=== PATIENT | female | born 1995 | race African-American/Black ===

== ENCOUNTER 2025-06-08 23:16 | Inpatient (IN) | payer MEDICAID ==
[~2025-06-08] VITALS: Ht 157.5 cm; Wt 65.5 kg
[2025-06-09 04:51] VITALS: BP 107/81; PULSE 82; RESP 16; TEMP 98.1; O2SAT 100
[2025-06-09] MEDS: INFLUENZA VIRUS VACCINE TVS (6MO+) 2025-26/PF 45 MCG/0.5 ML SYRINGE IM. ONE (05:45)
[2025-06-09 08:25] VITALS: BP 98/65; PULSE 86; RESP 16; TEMP 99; O2SAT 99
[2025-06-09] MEDS ORDERED: BACITRACIN 28 GM OINTMENT TP PRN (09:15)
[2025-06-09] MEDS ORDERED: ALBUTEROL SULFATE HFA 90 MCG/PUFF 8 GM INHALER IH PRN (09:15)
[2025-06-09] MEDS ORDERED: LOPERAMIDE HCL 2 MG CAPSULE PO PRN (09:15)
[2025-06-09] MEDS ORDERED: PETROLATUM,WHITE 28 GM JELLY TP PRN (09:15)
[2025-06-09] MEDS ORDERED: MAG HYDROX/ALUMINUM HYD/SIMETH ES 30 ML SUSPENSION UDCUP PO PRN (09:15)
[2025-06-09] MEDS ORDERED: OMEPRAZOLE 20 MG CAPSULE PO PRN (09:15)
[2025-06-09] MEDS ORDERED: MAGNESIUM HYDROXIDE SUSPENSION 30 ML UDCUP PO PRN (09:15)
[2025-06-09] MEDS ORDERED: ONDANSETRON 4 MG TABLET PO PRN (09:15)
[2025-06-09] MEDS ORDERED: BENZOCAINE/MENTHOL [CEPACOL] LOZENGE PO PRN (09:15)
[2025-06-09] MEDS ORDERED: ACETAMINOPHEN 325 MG TABLET PO PRN (09:15)
[2025-06-09 09:48] LABS: PLATELET COUNT (AUTO) 309 K/uL (150-450); RED BLOOD CELL COUNT(AUTO) 4.90 MIL/uL (4.00-5.20); RED CELL DISTRIBUTION WIDTH 14.2 % (11.5-14.5); WHITE BLOOD COUNT (AUTO) 3.9 K/uL (4.5-11.0)
[2025-06-09 10:03] LABS: ASPARTATE AMINOTRANSFERASE 24 U/L (15-37); CALCIUM, TOTAL 9.3 mg/dL (8.8-10.5); CHOL/HDL RATIO 3.0 (3.9-5.7); CREATININE 0.92 mg/dL (0.60-1.30); GLOMERULAR FILTR. RATE CALC > 60 mL/min (>60); GLUCOSE,RANDOM 76 mg/dL (70-110); LDL CHOL (CALC.) 106 mg/dL (0-130); SODIUM SERUM 136 mmol/L (136-145); TOTAL PROTEIN, SERUM 8.4 g/dL (6.4-8.2); UREA NITROGEN, BLOOD 6 mg/dL (7-18)
[2025-06-09 10:13] LABS: ALCOHOL, BLOOD (SERUM) < 3 mg/dL (0-10)
[2025-06-09 12:51] LABS: HCG,QUANTITATIVE < 1 mIU/mL (0-6)
[2025-06-09] MEDS: ESCITALOPRAM OXALATE 10 MG TABLET PO SCH (15:56)
[2025-06-09 20:37] VITALS: BP 107/68; PULSE 82; RESP 17; TEMP 97.7; O2SAT 98
[2025-06-10 08:13] VITALS: BP 113/78; PULSE 78; RESP 18; TEMP 97.9; O2SAT 98
[2025-06-10] MEDS: DOCUSATE SODIUM 100 MG CAPSULE PO PRN (09:41)
[2025-06-10 20:26] VITALS: BP 121/83; PULSE 78; RESP 17; TEMP 98; O2SAT 100
[2025-06-11 08:25] VITALS: BP 103/73; PULSE 79; RESP 16; TEMP 98.2; O2SAT 98
[2025-06-11 20:28] VITALS: BP 120/79; PULSE 99; RESP 17; TEMP 98.2; O2SAT 98
[2025-06-12 08:43] VITALS: BP 104/69; PULSE 78; RESP 16; TEMP 99.4; O2SAT 100
[2025-06-12] MEDS: ZOLPIDEM TARTRATE 10 MG TABLET PO PRN (20:24)
[2025-06-12 20:30] VITALS: BP 101/80; PULSE 75; RESP 17; TEMP 98.2; O2SAT 99
[2025-06-13 08:46] VITALS: BP 97/68; PULSE 83; RESP 16; TEMP 98.9; O2SAT 100
[2025-06-13 20:33] VITALS: BP 111/68; PULSE 68; RESP 17; TEMP 98.5; O2SAT 97
[2025-06-14 10:14] VITALS: BP 103/73; PULSE 86; RESP 17; TEMP 98.2; O2SAT 99
[2025-06-14 11:31] LABS: APPEARANCE,URINE CLEAR (CLEAR); GLUCOSE, URINE (UA) NEGATIVE (NEGATIVE); LEUKOCYTE ESTERASE ,URINE NEGATIVE (NEGATIVE); NITRATE,URINE NEGATIVE (NEGATIVE); OCCULT BLOOD,URINE NEGATIVE (NEGATIVE); PH,URINE DRUG SCREEN 7.0 (5.0-8.0); SPECIFIC GRAVITIY, URINE 1.025 (1.003-1.030)
[2025-06-14 12:39] LABS: ALCOHOL, URINE DRUG SCREEN NEGATIVE (NEGATIVE); AMPHET/METH SCREEN,URINE NEGATIVE (NEGATIVE); BARBITURATE SCREEN, URINE NEGATIVE (NEGATIVE); CANNABINOID SCREEN,URINE NEGATIVE (NEGATIVE); COCAINE SCREEN,URINE NEGATIVE (NEGATIVE); METHADONE SCREEN, URINE NEGATIVE (NEGATIVE)
[2025-06-14 20:22] VITALS: BP 104/76; PULSE 89; RESP 17; TEMP 97.7; O2SAT 100
[2025-06-15 08:23] VITALS: BP 126/74; PULSE 76; RESP 16; TEMP 98; O2SAT 97
[2025-06-15 20:14] VITALS: BP 101/67; PULSE 77; RESP 18; TEMP 97.9; O2SAT 98
[2025-06-16 08:48] VITALS: BP 98/68; PULSE 78; RESP 16; TEMP 98.9; O2SAT 100
[2025-06-16] MEDS: DIVALPROEX SODIUM 500 MG DR TABLET PO SCH (09:35)
[2025-06-16] MEDS: LITHIUM CARBONATE 300 MG CAPSULE PO SCH (09:35)
[2025-06-16 12:24] VITALS: RESP 16; O2SAT 100
[2025-06-16] MEDS: IBUPROFEN 600 MG TABLET PO PRN (12:24)
[2025-06-16 13:24] VITALS: RESP 16; O2SAT 100
[2025-06-16 13:47] VITALS: BP 108/71; RESP 17; O2SAT 100
[2025-06-16] MEDS ORDERED: LURASIDONE HCL 80 MG TABLET PO SCH (17:00)
[2025-06-16] MEDS: AMPHETAMINE/DEXTROAMPHETAMINE 10 MG TABLET PO SCH (17:47)
[2025-06-16] MEDS: ESCITALOPRAM OXALATE 10 MG TABLET PO SCH (17:48)
[2025-06-16 20:17] VITALS: BP 118/88; PULSE 81; RESP 17; TEMP 97.8; O2SAT 98
[2025-06-17 03:09] VITALS: BP 121/75; PULSE 77; RESP 18; TEMP 98; O2SAT 99
[2025-06-17 08:50] VITALS: RESP 17
[2025-06-17 20:00] VITALS: BP 132/77; PULSE 77; RESP 17; TEMP 97.6
[2025-06-18] MEDS ORDERED: AMPHETAMINE/DEXTROAMPHETAMINE 10 MG TABLET PO SCH ×2 (09:00→14:00)
[2025-06-18 09:04] VITALS: BP 131/61; PULSE 77; RESP 18; TEMP 98.1; O2SAT 98
[2025-06-18] MEDS: AMPHETAMINE/DEXTROAMPHETAMINE 10 MG TABLET PO SCH (09:22)
[2025-06-18 20:00] VITALS: BP 123/75; PULSE 73; RESP 17; TEMP 98.2; O2SAT 99
[2025-06-19 08:15] VITALS: BP 124/74; PULSE 74; RESP 18; TEMP 98.1; O2SAT 99
[2025-06-19 20:09] VITALS: BP 115/68; PULSE 83; RESP 17; TEMP 97.5; O2SAT 96
[2025-06-20 08:33] VITALS: BP 95/62; PULSE 86; RESP 16; TEMP 98; O2SAT 100
[2025-06-20 20:44] VITALS: BP 104/7; PULSE 77; RESP 17; TEMP 98.5; O2SAT 100
[2025-06-21 08:37] VITALS: BP 107/72; PULSE 70; RESP 17; TEMP 98.1; O2SAT 100
[2025-06-21 08:48] VITALS: RESP 18
[2025-06-21] MEDS: AMPHETAMINE/DEXTROAMPHETAMINE 10 MG TABLET PO SCH (08:48)
[2025-06-21 09:48] VITALS: RESP 18
[2025-06-21 12:00] VITALS: RESP 18
[2025-06-21 13:00] VITALS: RESP 18
[2025-06-21 20:57] VITALS: BP 113/87; PULSE 87; RESP 17; TEMP 98.5; O2SAT 99
[2025-06-22 08:29] VITALS: BP 118/73; PULSE 78; RESP 18; TEMP 97.9; O2SAT 95
[2025-06-22 09:31] VITALS: RESP 18
[2025-06-22 10:31] VITALS: RESP 18
[2025-06-22] MEDS ORDERED: ESCI-8 PO (15:59)
[2025-06-22] MEDS ORDERED: LORA0.5T20 PO (15:59)
[2025-06-22] MEDS ORDERED: ADDE10 PO (15:59)
== END 2025-06-22 18:00 | disposition home or self-care (01) | DRG 751 ==
LOC: B2S 06-09 00:41
PROVIDERS: ADMIT Psychiatry & Neurology Psychiatry; ATTEND Psychiatry & Neurology Psychiatry
PROC: GZHZZZZ Group Psychotherapy (ICD-10-PCS; principal; 2025-06-10)
PROC: GZ51ZZZ Individual Psychotherapy, Behavioral (ICD-10-PCS; 2025-06-10)
DX: F33.2 Major depressive disorder, recurrent severe without psychotic features (principal); R45.851 Suicidal ideations; F90.9 Attention-deficit hyperactivity disorder, unspecified type; G47.00 Insomnia, unspecified; F43.10 Post-traumatic stress disorder, unspecified; F41.9 Anxiety disorder, unspecified; L93.0 Discoid lupus erythematosus
CPT/HCPCS: 80053; 80061; 80307; 81003; 83036; 84436; 84439; 84443; 84702; 85025; 86592; 90686; G0480